=== PATIENT | male | born 1960 | race Caucasian/White ===

== ENCOUNTER 2023-12-11 07:25 | Day surgery (SDC) | payer OTHER ==
[~2023-12-11 07:25] MED LIST: LACTATED RINGERS 1,000 ML BAG ONE; LIDOCAINE 2% (PF) 20 MG/ML 5 ML VIAL ONE; PROPOFOL 10 MG/ML 20 ML VIAL IV ONE
--- NOTE | 2024-01-02 11:47 | P.PCN ---
Date of Procedure: 12/11/23 Procedure(s) Performed: This is an addendum to the procedure that was performed on 12/11/2023. Procedure performed: EGD with biopsy and colonoscopy with snare polypectomy Procedure Upper endoscopy was performed and the scope was advanced all the way into the duodenum. Patient was noted to have mild antral gastritis and LA grade a reflux esophagitis. Biopsies were done from the antrum to evaluate for H. pylori infection. Colonoscopy was advanced all the way to the cecum. A 5 mm cecal polyp was noted that was removed by cold snare polypectomy and a 3 mm transverse colon polyp that was removed by cold biopsy.
== END 2023-12-11 08:23 ==
LOC: ORWHC2ENDO 07:25
PROVIDERS: ATTEND Internal Medicine Gastroenterology
DX: Z12.11 Encounter for screening for malignant neoplasm of colon (principal); D12.0 Benign neoplasm of cecum; D12.3 Benign neoplasm of transverse colon; K29.50 Unspecified chronic gastritis without bleeding; K21.00 Gastro-esophageal reflux disease with esophagitis, without bleeding; I10 Essential (primary) hypertension; E78.5 Hyperlipidemia, unspecified; Z91.013 Allergy to seafood; Z79.899 Other long term (current) drug therapy
CPT/HCPCS: 43239; 45385; 88305